=== PATIENT | female | born 1980 | race Caucasian/White ===

== ENCOUNTER 2016-06-26 09:22 | Emergency (ER) | payer MEDICAID | END 2016-06-26 11:34 | disposition home or self-care (01) | LOC: ER 09:22 | DX: S30.0XXA Contusion of lower back and pelvis, initial encounter (principal); W19.XXXA Unspecified fall, initial encounter; Z79.899 Other long term (current) drug therapy; F17.210 Nicotine dependence, cigarettes, uncomplicated | CPT/HCPCS: 72100; 72170 ==